=== PATIENT | male | born 1985 | race African-American/Black ===

== ENCOUNTER 2023-08-17 20:17 | Emergency (ER) | payer SELFPAY | END 2023-08-17 21:00 | disposition home or self-care (01) | LOC: ERS 20:17 | DX: S46.812A Strain of other muscles, fascia and tendons at shoulder and upper arm level, left arm, initial encounter (principal); M62.830 Muscle spasm of back; I10 Essential (primary) hypertension; V49.9XXA Car occupant (driver) (passenger) injured in unspecified traffic accident, initial encounter; Z79.899 Other long term (current) drug therapy | CPT/HCPCS: 99282 ==